=== PATIENT | male | born 1960 | race Caucasian/White ===

== ENCOUNTER 2019-04-14 16:31 | Emergency (ER) | payer SELFPAY ==
[2019-04-14 16:44] VITALS: BP 135/86; PULSE 97; TEMP 98.5; BMI 24.2
--- NOTE | 2019-04-14 16:59 | PDOC ---
History of Present Illness - General Chief Complaint: Pain Stated Complaint: GROIN PAIN Time Seen by Provider: 04/14/19 16:58 History Source: Patient Exam Limitations: No Limitations - History of Present Illness Initial Comments: 04/14/19 17:16 Antonio Altamirano is a 58yM with PMHx of hypertension, hyperlipidemia, diabetes , and kidney stones presenting with right groin pain. The pain started 5days ago , unknown inciting factor, describes as sharp, shooting pain in right suprapubic region radiating down to groin. At rest, the pain is a 1/10. 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 Took tylenol without relief. Denies fever, chills, nausea, vomiting, urinary changes (no pain, blood, or trouble urinating), diarrhea, or constipation Past History - Travel Traveled outside of the country in the last 30 days: No Close contact w/someone who was outside of country & ill: No - Past Medical History Allergies/Adverse Reactions: Allergies Allergy/AdvReac Type Severity Reaction Status Date / Time No Known Allergies Allergy Verified 04/14/19 16:44 Home Medications: Ambulatory Orders Amlodipine Besylate [Norvasc -] 10 mg PO DAILY 04/14/19 Aspirin Coated [Ecotrin -] 81 mg PO DAILY 04/14/19 Lisinopril/Hydrochlorothiazide [Lisinopril-Hctz 20-12.5 mg Tab] 1 each PO DAILY 04/14/19 Metformin HCl [Glucophage] 1,000 mg PO BID 04/14/19 Pravastatin Sodium [Pravachol (Nf)] 20 mg PO HS 04/14/19 Sitagliptin Phosphate [Januvia -] 100 mg PO DAILY@0700 04/14/19 COPD: No Diabetes: Yes HTN: Yes Hypercholesterolemia: Yes Kidney Stones: Yes - Suicide/Smoking/Psychosocial Hx Smoking History: Former smoker Years of Tobacco Use: 20 Have you smoked in the past 12 months: No Information on smoking cessation initiated: No Hx Alcohol Use: No Drug/Substance Use Hx: No Substance Use Type: Alcohol (5 beers/week) Review of Systems - Review of Systems Able to Perform ROS?: Yes Is the patient limited Green[place]ic proficient: No Constitutional: No: Chills, Fever, Malaise, Weakness HEENTM: No: Eye Pain, Nose Pain, Throat Pain Respiratory: No: Cough, Shortness of Breath, Wheezing Cardiac (ROS): No: Chest Pain, Edema, Palpitations, Syncope ABD/GI: No: Abdominal Distended, Blood Streaked Bowels, Constipated, Diarrhea, Nausea, Vomiting, Abdominal cramping : No: Burning, Dysuria, Discharge, Frequency, Flank Pain, Hematuria, Urgency Musculoskeletal: No: Joint Pain, Joint Swelling, Muscle Pain Integumentary: No: Bruising, Change in Color, Dryness, Erythema, Flushing Neurological: No: Headache, Numbness, Paresthesia, Tingling, Tremors, Weakness Endocrine: No: Excessive Sweating, Flushing, Intolerance to Cold, Intolerance to Heat *Physical Exam - Vital Signs Last Vital Signs Temp Pulse Resp BP Pulse Ox 98.5 F 97 H 16 135/86 98 04/14/19 16:32 04/14/19 16:32 04/14/19 16:32 04/14/19 16:32 04/14/19 16:32 - Physical Exam General Appearance: Yes: Nourished, Appropriately Dressed. No: Apparent Distress HEENT: positive: Normal Voice. negative: Nasal Congestion, Rhinorrhea Respiratory/Chest: positive: Lungs Clear, Normal Breath Sounds. negative: Chest Tender, Respiratory Distress Cardiovascular: positive: Regular Rhythm, Regular Rate, S1, S2. negative: Murmur Gastrointestinal/Abdominal: positive: Normal Bowel Sounds, Tender (right suprabic region to deep palpation), Flat, Soft, Other (no ). negative: Organomegaly, Distended, Guarding, Rebound, Hernia, Mass, Hepatomegaly, Spleenomegaly Male Genitalia: positive: normal genitalia, other (no skin breakage, rash, lesions). negative: discharge, testicular tenderness, testicular mass, hernia, hematuria Integumentary: positive: Normal Color Neurologic: positive: Fully Oriented, Alert, Responsive ED Treatment Course - LABORATORY CBC & Chemistry Diagram: 04/14/19 17:20 04/14/19 17:20 Medical Decision Making - Medical Decision Making 04/14/19 17:13 Ordered UA w culture, CBC, CMP Denied pain meds due to lack of pain at current moment 04/14/19 18:[address] rule out R renal colic Antonio Altamirano is a 58yM with PMHx of hypertension, hyperlipidemia, diabetes , and kidney stones presenting with groin pain. Likely inguinal hernia due to aggravated pain during lifting heavy items. Consider UTI and nephrolithiasis despite afebrile appearance and lack of urinary symptoms. Anticipate d/c home pending urinalysis results and CT abdomen. Signed out to Dr. VIDHI Cabrera. *DC/Admit/Observation/Transfer Diagnosis at time of Disposition: Viral infection characterized by skin and mucous membrane lesions - Discharge Dispostion Disposition: HOME Condition at time of disposition: Stable Decision to Admit order: No - Referrals - Patient Instructions - Post Discharge Activity
[2019-04-14 17:53] LABS: BASO % 0.5 % (0-2.0); EOS % 1.1 % (0-4.5); HEMATOCRIT 43.7 % (35.4-49); HEMOGLOBIN 14.7 GM/dL (11.7-16.9); LYMPH % 22.1 % (8-40); MCH 30.7 pg (25.7-33.7); MCHC 33.5 g/dl (32.0-35.9); MEAN CELL VOLUME 91.7 fl (80-96); MEAN PLT VOLUME 7.7 fl (7.5-11.1); MONO % 7.4 % (3.8-10.2); NEUT % 68.9 % (42.8-82.8); PLATELET COUNT 257 K/MM3 (134-434); RBC 4.77 M/mm3 (4.00-5.60); RDW 13.9 % (11.9-15.9); WHITE BLOOD COUNT 6.4 K/mm3 (4.0-10.0)
[2019-04-14] MEDS ORDERED: SODIUM CHLORIDE 0.9% 500 ML INFUS.BAG IV ONE (18:03)
[2019-04-14] MEDS ORDERED: KETOROLAC TROMETHAMINE 30 MG/1 ML VIAL IVPUSH ONE (18:06)
[2019-04-14] MEDS ORDERED: KETOROLAC TROMETHAMINE 30 MG/1 ML VIAL ONE (18:07)
[2019-04-14 18:25] LABS: ALBUMIN 4.1 g/dl (3.4-5.0); BILIRUBIN,TOTAL 0.2 mg/dL (0.2-1); BLOOD UREA NITROGEN 24.7 mg/dL (7-18); CALCIUM 9.3 mg/dL (8.5-10.1); CREATININE 1.2 mg/dL (0.55-1.3); POTASSIUM 3.8 mmol/L (3.5-5.1); TOT PROT 6.7 g/dl (6.4-8.2)
[2019-04-14 18:39] LABS: URINE APPEARANCE CLEAR; URINE BILIRUBIN NEGATIVE (NEGATIVE); URINE COLOR YELLOW; URINE GLUCOSE (UA) NEGATIVE (NEGATIVE); URINE KETONE NEGATIVE (NEGATIVE)
[2019-04-14 18:40] LABS: URINE LEUK ESTERASE NEGATIVE (NEGATIVE); URINE NITRITE NEGATIVE (NEGATIVE); URINE PROTEIN NEGATIVE (NEGATIVE); URINE UROBILINOGEN 0.2 mg/dL (0.2-1.0)
[2019-04-14 18:42] LABS: EPI CELLS 0.1 /HPF (0-5/HPF); HYALINE CASTS 0 /lpf (0-8); URINE BACTERIA 0.7 /hpf (NEGATIVE); URINE RBC 0 /hpf (0-4); URINE WBC 0 /hpf (0-5)
--- NOTE | 2019-04-14 18:48 | PDOC ---
*Physical Exam - Vital Signs Last Vital Signs Temp Pulse Resp BP Pulse Ox 98.5 F 97 H 16 135/86 98 04/14/19 16:32 04/14/19 16:32 04/14/19 16:32 04/14/19 16:32 04/14/19 16:32 - Physical Exam Comments: 04/14/19 18:44 Signed out to me by Dr. Winchester at 18:44. Antonio Altamirano is a 58M with PMH renal calculi presenting with 5 days R groin pain concerning for renal stone vs. inguinal hernia vs. renal colic. No fever/chills, no urinary problems. Pending UA, UC, CMP, CBC, and CT abd for renal calculus evaluation. Currently stable and in no pain, will CTM. General Appearance: Yes: Nourished, Appropriately Dressed, Thin. No: Apparent Distress HEENT: positive: Normal Voice, Symmetrical Neck: positive: Trachea midline, Supple Respiratory/Chest: positive: Lungs Clear, Normal Breath Sounds. negative: Chest Tender, Respiratory Distress Cardiovascular: positive: Regular Rhythm, Regular Rate Gastrointestinal/Abdominal: positive: Normal Bowel Sounds, Tender (R groin pain on palpation), Flat, Soft. negative: Hepatomegaly, Spleenomegaly Musculoskeletal: positive: Normal Inspection Extremity: positive: Normal Capillary Refill, Normal Inspection, Normal Range of Motion Integumentary: positive: Normal Color, Warm Neurologic: positive: Fully Oriented, Alert, Normal Mood/Affect, Normal Response ED Treatment Course - LABORATORY CBC & Chemistry Diagram: 04/14/19 17:20 04/14/19 17:20 - ADDITIONAL ORDERS Additional order review: Laboratory Results 04/14/19 04/14/19 18:04 17:20 Sodium 138 Potassium 3.8 Chloride 106 Carbon Dioxide 25 Anion Gap 7 L BUN 24.7 H Creatinine 1.2 Est GFR (CKD-EPI)AfAm 75.72 Est GFR (CKD-EPI)NonAf 65.33 Random Glucose 159 H Calcium 9.3 Total Bilirubin 0.2 AST 24 ALT 39 Alkaline Phosphatase 66 Total Protein 6.7 Albumin 4.1 Urine Color Yellow Urine Appearance Clear Urine pH 5.0 Ur Specific [place] 1.017 Urine Protein Negative Urine Glucose (UA) Negative Urine Ketones Negative Urine Blood Negative Urine Nitrite Negative Urine Bilirubin Negative Urine Urobilinogen 0.2 Ur Leukocyte Esterase Negative Urine WBC (Auto) 0 Urine RBC (Auto) 0 Urine Casts (Auto) 0 U Epithel Cells (Auto) 0.1 Urine Bacteria (Auto) 0.7 04/14/19 17:20 RBC 4.77 MCV 91.7 MCHC 33.5 RDW 13.9 MPV 7.7 Neutrophils % 68.9 Lymphocytes % 22.1 Monocytes % 7.4 Eosinophils % 1.1 Basophils % 0.5 - Medications Given in the ED: ED Medications Discontinued Medications Generic Name Dose Route Start Last Admin Trade Name Edwina PRN Reason Stop Dose Admin Sodium Chloride 1,000 ml 04/14/19 18:03 04/14/19 18:13 Normal Saline - IV 04/14/19 18:04 1,000 ml ONCE ONE Administration Medical Decision Making - Medical Decision Making 04/14/19 18:44 Signed out to me by Dr. Winchester at 18:44. Antonio Altamirano is a 58M with PMH renal calculi presenting with 5 days R groin pain concerning for renal stone vs. inguinal hernia vs. renal colic. No fever/chills, no urinary problems. Pending UA, UC, CMP, CBC, and CT abd for renal calculus evaluation. Currently stable and in no pain, will CTM. 04/14/19 20:31 CT abdomen shows R hydronephrosis 2/2 punctate calculus. Will refer to Dr. Pagan with Urology. Does not wish for medications on discharge, encourage fluids and advised Tylenol for pain control. *DC/Admit/Observation/Transfer Diagnosis at time of Disposition: Kidney stone on right side - Discharge Dispostion Disposition: HOME Condition at time of disposition: Improved Decision to Admit order: No - Referrals Referrals: Harinder Pagan MD [Staff Physician] - - Patient Instructions Printed Discharge Instructions: Kidney Stones -- Adult Additional Instructions: Today, you got a CT scan of your abdomen and were found to have a small kidney stone on your right side that is the cause of your pain. The stone is small enough that it will pass through your urine. Drink a lot of fluids like water. If you have pain, buy some Tylenol or Advil and take as prescribed. We have referred you to Dr. Pagan with Urology for further follow-up. Please return to the emergency room if you have any fevers, nausea, vomiting, or if you have any new, worsening, or recurrent symptoms. Print Language: SERBIAN - Post Discharge Activity
--- NOTE | 2019-04-14 18:58 | PDOC ---
Documentation entered by Darren Valentine SCRIBE, acting as scribe for Mandeep Bowens MD. Mandeep Bowens MD: This documentation has been prepared by the Meme gonzalez Xhesika, SCRIBE, under my direction and personally reviewed by me in its entirety. I confirm that the documentation accurately reflects all work, treatment, procedures, and medical decision making performed by me. Attending Attestation - Resident Resident Name: Colton Winchester - ED Attending Attestation I have performed the following: I have examined & evaluated the patient, The case was reviewed & discussed with the resident, I agree w/resident's findings & plan, Exceptions are as noted - HPI HPI: 04/14/19 17:38 The patient is a 58 year old male, with a significant PMH of kidney stones who presents to the emergency department with 5 days of groin pain s/p heavy lifting. The patient describes the pain as sharp, shooting pain that began in his R suprapubic region and radiates to his R inguinal region. The patient states his pain is worsened with heavy lifting or pushing heavy items, especially at his job. The patient states he took tylenol with no relief, however his pain is a 1/10 currently. The patient denies chest pain, shortness of breath, headache and dizziness. Denies fever, chills, and constipation. Denies dysuria, frequency, urgency and hematuria. Allergies: NKA, NKDA - Physicial Exam PE: 04/14/19 19:21 GENERAL: Awake, alert, and fully oriented, in no acute distress HEAD: No signs of trauma EYES: PERRLA, EOMI, sclera anicteric, conjunctiva clear ENT: Auricles normal inspection, hearing grossly normal, nares patent, oropharynx clear without exudates. Moist mucosa NECK: Normal ROM, supple ABDOMEN: Soft, nontender, TTP RLQ, R suprapubic. No guarding, no rebound. No masses EXTREMITIES: Normal range of motion, no edema. No clubbing or cyanosis. No cords, erythema, or tenderness NEUROLOGICAL: Cranial nerves II through XII grossly intact. Normal speech, normal gait SKIN: Warm, Dry, normal turgor, no rashes or lesions noted. - Medical Decision Making 04/14/19 19:36 Vital Signs Temp Pulse Resp BP Pulse Ox 98.5 F 97 H 16 135/86 98 04/14/19 16:32 04/14/19 16:32 04/14/19 16:32 04/14/19 16:32 04/14/19 16:32 CBC, BMP 04/14/19 17:20 04/14/19 17:20 CMP Sodium 138 mmol/L (136-145) 04/14/19 17:20 Potassium 3.8 mmol/L (3.5-5.1) 04/14/19 17:20 Chloride 106 mmol/L (98-107) 04/14/19 17:20 Carbon Dioxide 25 mmol/L (21-32) 04/14/19 17:20 Anion Gap 7 MMOL/L (8-16) L 04/14/19 17:20 BUN 24.7 mg/dL (7-18) H 04/14/19 17:20 Creatinine 1.2 mg/dL (0.55-1.3) 04/14/19 17:20 Est GFR (CKD-EPI)AfAm 75.72 04/14/19 17:20 Est GFR (CKD-EPI)NonAf 65.33 04/14/19 17:20 Random Glucose 159 mg/dL (74-106) H 04/14/19 17:20 Calcium 9.3 mg/dL (8.5-10.1) 04/14/19 17:20 Total Bilirubin 0.2 mg/dL (0.2-1) 04/14/19 17:20 AST 24 U/L (15-37) 04/14/19 17:20 ALT 39 U/L (13-61) 04/14/19 17:20 Alkaline Phosphatase 66 U/L (45-117) 04/14/19 17:20 Total Protein 6.7 g/dl (6.4-8.2) 04/14/19 17:20 Albumin 4.1 g/dl (3.4-5.0) 04/14/19 17:20 Urine Test Results Urine Color Yellow 04/14/19 18:04 Urine Appearance Clear 04/14/19 18:04 Urine pH 5.0 (5.0-8.0) 04/14/19 18:04 Ur Specific [place] 1.017 (1.010-1.035) 04/14/19 18:04 Urine Protein Negative (NEGATIVE) 04/14/19 18:04 Urine Glucose (UA) Negative (NEGATIVE) 04/14/19 18:04 Urine Ketones Negative (NEGATIVE) 04/14/19 18:04 Urine Blood Negative (NEGATIVE) 04/14/19 18:04 Urine Nitrite Negative (NEGATIVE) 04/14/19 18:04 Urine Bilirubin Negative (NEGATIVE) 04/14/19 18:04 Ur Leukocyte Esterase Negative (NEGATIVE) 04/14/19 18:04 Patient with lower abdominal pain. We'll need to rule out acute appendicitis, renal colic, muscle skeletal, internal hernia. CT scan pending and reassess. 04/14/19 20:28 CT scan shows a punctuate kidney stone on the right side but no obstruction. The patient reports feeling better and he is tolerating PO. Pt declines medications at this time, including flomax. Will refer patient to urology as an outpatient. Return precautions given.
== END 2019-04-14 20:40 | disposition home or self-care (01) ==
LOC: JER 16:31
PROC: 3E0337Z Introduction of Electrolytic and Water Balance Substance into Peripheral Vein, Percutaneous Approach (ICD-10-PCS; principal; 2019-04-14)
DX: B34.9 Viral infection, unspecified (principal); I10 Essential (primary) hypertension; E78.5 Hyperlipidemia, unspecified; E11.9 Type 2 diabetes mellitus without complications; N20.0 Calculus of kidney
CPT/HCPCS: 36415; 74176-TC; 80053; 81003; 85025; 87086; 99283-25

== ENCOUNTER 2023-09-30 15:13 | Observation (INO) | payer OTHER ==
[2023-09-30 15:23] VITALS: BMI 27.1
[2023-09-30] MEDS ORDERED: SODIUM CHLORIDE 0.9% 500 ML INFUS.BAG IV ONE ×2 (16:47→20:39)
[2023-09-30] MEDS ORDERED: ACETAMINOPHEN 1000 MG/100 ML BAG IVPB ONE (16:47)
[2023-09-30] MEDS ORDERED: ACETAMINOPHEN INJECTION 100 ML IVPB ONE (17:15)
[2023-09-30 17:35] LABS: BASO % 0.1 % (0-2.0); EOS % 0.1 % (0-4.5); HEMATOCRIT 45.7 % (35.4-49); HEMOGLOBIN 15.5 GM/dL (11.7-16.9); LYMPH % 9.3 % (8-40); MCH 30.5 pg (25.7-33.7); MEAN CELL VOLUME 89.6 fl (80-96); MEAN PLT VOLUME 7.8 fl (7.5-11.1); NEUT % 79.5 % (42.8-82.8); PLATELET COUNT 240 10^3/uL (134-434); WHITE BLOOD COUNT 4.4 K/mm3 (4.0-10.0)
[2023-09-30 17:38] LABS: EPI CELLS 3 /uL (0-25.1); HYALINE CASTS 0 /uL (0-3.1); PH,URINE 6.5 (5.0-8.0); URINE APPEARANCE CLEAR; URINE BACTERIA 1 /uL (0-1359); URINE BILIRUBIN NEGATIVE (NEGATIVE); URINE COLOR YELLOW; URINE GLUCOSE (UA) NEGATIVE (NEGATIVE); URINE KETONE 1+ (NEGATIVE); URINE LEUK ESTERASE NEGATIVE (NEGATIVE); URINE NITRITE NEGATIVE (NEGATIVE); URINE PROTEIN 2+ (NEGATIVE); URINE RBC 5 /uL (0-23.9); URINE UROBILINOGEN 0.2 mg/dL (0.2-1.0); URINE WBC 5 /uL (0-25.8)
[2023-09-30 17:44] LABS: INR 1.17 (0.83-1.09); PROTHROMBIN TIME (PATIENT) 13.5 SEC (9.7-13.0)
[2023-09-30 17:47] LABS: ACTIVATED PTT 38.5 SECONDS (25.2-36.5)
[2023-09-30 17:50] LABS: POTASSIUM 3.9 mmol/L (3.5-5.1)
[2023-09-30 17:52] LABS: ALBUMIN 4.3 g/dl (3.4-5.0); BLOOD UREA NITROGEN 21.4 mg/dL (7-18)
[2023-09-30 17:55] LABS: CREATININE 1.6 mg/dL (0.55-1.3)
[2023-09-30 17:57] LABS: BILIRUBIN,TOTAL 0.3 mg/dL (0.2-1); TOT PROT 8.2 g/dl (6.4-8.2)
[2023-09-30] MEDS ORDERED: cefTRIAXone SODIUM 1 GM VIAL ONE (20:55)
[2023-10-01] MEDS ORDERED: ACETAMINOPHEN 1000 MG/100 ML BAG IVPB ONE
[2023-10-01] MEDS ORDERED: ACETAMINOPHEN INJECTION 100 ML IVPB ONE ×2 (00:01→05:56)
[2023-10-01] MEDS: ACETAMINOPHEN 1000 MG/100 ML BAG IVPB PRN ×3 (00:03→14:00)
[2023-10-01] MEDS: SODIUM CHLORIDE 1,000 ML IV SCH ×2 (00:03→14:39)
[2023-10-01 06:41] LABS: BASO % 0.6 % (0-2.0); EOS % 0.9 % (0-4.5); HEMOGLOBIN 14.1 GM/dL (11.7-16.9); LYMPH % 22.4 % (8-40); MCHC 33.5 g/dl (32.0-35.9); MEAN CELL VOLUME 89.5 fl (80-96); MEAN PLT VOLUME 7.7 fl (7.5-11.1); MONO % 16.2 % (3.8-10.2); NEUT % 59.9 % (42.8-82.8); PLATELET COUNT 195 10^3/uL (134-434); RDW 13.8 % (11.9-15.9)
[2023-10-01 07:02] LABS: POTASSIUM 4.1 mmol/L (3.5-5.1)
[2023-10-01 07:15] LABS: BLOOD UREA NITROGEN 17.6 mg/dL (7-18)
[2023-10-01 07:18] LABS: CREATININE 1.1 mg/dL (0.55-1.3)
[2023-10-01 07:22] LABS: CALCIUM 8.3 mg/dL (8.5-10.1)
[2023-10-01] MEDS ORDERED: CEFTRIAXONE 1 GM/50 ML BAG ONE (09:17)
[2023-10-01] MEDS: CEFTRIAXONE 1 GM in DEXTROSE 5%-WATER - 50 ML IVPB SCH (09:22)
[2023-10-01] MEDS: amLODIPine BESYLATE 10 MG TABLET (FP) PO SCH (12:21)
[2023-10-01] MEDS: INSULIN SLIDING SCALE (NOVOLOG) 1 VIAL SQ SCH ×2 (12:22→17:41)
[2023-10-01 14:36] VITALS: RESP 18
[2023-10-01] MEDS ORDERED: ATORVASTATIN CA 10 MG TABLET (FP) PO SCH (22:00)
[2023-10-02] MEDS: SODIUM CHLORIDE 1,000 ML IV SCH ×2 (00:50→11:30)
[2023-10-02] MEDS: INSULIN SLIDING SCALE (NOVOLOG) 1 VIAL SQ SCH ×2 (06:36→12:24)
[2023-10-02] MEDS: CEFTRIAXONE 1 GM in DEXTROSE 5%-WATER - 50 ML IVPB SCH (09:37)
[2023-10-02] MEDS: amLODIPine BESYLATE 10 MG TABLET (FP) PO SCH (09:37)
[2023-10-02] MEDS ORDERED: ACETAMINOPHEN 325 MG TABLET (FP) PO PRN (10:33)
[2023-10-02] MEDS ORDERED: traMADol HCL 50 MG TABLET PO PRN (10:34)
[2023-10-02 11:44] VITALS: BP 136/81; PULSE 94; TEMP 98.9
== END 2023-10-02 15:45 | disposition home or self-care (01) ==
LOC: JER 15:13 → INTOOBSV 21:35 → UNDOADMOB 21:35 → JERBED 21:35 → J5S 10-01 09:31 → JERBED 10-01 09:31 → J5S 10-01 10:45
PROVIDERS: ADMIT Internal Medicine; ATTEND Internal Medicine
PROC: 3E033NZ Introduction of Analgesics, Hypnotics, Sedatives into Peripheral Vein, Percutaneous Approach (ICD-10-PCS; principal; 2023-10-01)
PROC: 3E03329 Introduction of Other Anti-infective into Peripheral Vein, Percutaneous Approach (ICD-10-PCS; 2023-10-01)
PROC: 3E03329 Introduction of Other Anti-infective into Peripheral Vein, Percutaneous Approach (ICD-10-PCS; 2023-10-01)
PROC: 3E013VG Introduction of Insulin into Subcutaneous Tissue, Percutaneous Approach (ICD-10-PCS; 2023-10-01)
PROC: 3E0337Z Introduction of Electrolytic and Water Balance Substance into Peripheral Vein, Percutaneous Approach (ICD-10-PCS; 2023-10-01)
DX: N12 Tubulo-interstitial nephritis, not specified as acute or chronic (principal); N13.30 Unspecified hydronephrosis; N17.9 Acute kidney failure, unspecified; E11.9 Type 2 diabetes mellitus without complications; I10 Essential (primary) hypertension; E78.5 Hyperlipidemia, unspecified; N20.0 Calculus of kidney
CPT/HCPCS: 0241U-QW; 36415; 71046-TC-FY; 74176-TC; 80048; 80053; 81003; 82962; 84484; 85025; 85610; 85730; 86850; 86900; 86901; 87040; 87086; 93005; 93010; 96361; 96365; 96375; 96376; 99285-25; G0378